=== PATIENT | male | born 1940 | race Caucasian/White ===

== ENCOUNTER → 2017-01-07 | Outpatient (CLI) | payer MEDICARE ==
[~2017-01-07] MED LIST: ALEVE220 MG PO; CLARITIN10 MG PO; LIPITOR TAB 1010 MG PO; NORVASC5 MG PO; PROTONIX40 MG PO; ZANTAC150 MG PO
== END ==
LOC: KOH-I 10:09
DX: M79.672 Pain in left foot (principal); M77.32 Calcaneal spur, left foot
CPT/HCPCS: 73630

== ENCOUNTER → 2021-09-26 | Outpatient (CLI) | payer MEDICARE ==
[~2021-09-26] MED LIST changes: +CEFPODOXIME PR200 MG PO; +K-DUR TAB 20 M20 MEQ PO; +KEFLEX500 MG PO; +MECLIZINE HCL25 MG PO; +TIROSINT25 MCG PO; +ZOFRAN ODT 4 MG4 MG PO
== END ==
LOC: HEART 5 08:45
DX: J44.9 Chronic obstructive pulmonary disease, unspecified (principal); J94.8 Other specified pleural conditions; R91.8 Other nonspecific abnormal finding of lung field; R94.2 Abnormal results of pulmonary function studies
CPT/HCPCS: 71046; 94060; 94729

== ENCOUNTER 2021-10-10 11:53 | Emergency (ER) | payer MEDICARE ==
[~2021-10-10 11:53] MED LIST changes: -MECLIZINE HCL25 MG PO; -ZOFRAN ODT 4 MG4 MG PO
[2021-10-10 13:44] LABS: HEMOGLOBIN 14.7 gm/dl (14.0-17.5); RED BLOOD COUNT 4.7 M/UL (4.20-5.50); WHITE BLOOD COUNT 7.2 K/UL (4.5-11.0)
[2021-10-10 14:10] LABS: BUN/CREATININE RATIO 17 (0-10)
[2021-10-10] MEDS ORDERED: ZOFRAN ODT 4 MG4 MG PO (19:02)
[2021-10-10] MEDS ORDERED: MECLIZINE HCL25 MG PO (19:02)
== END 2021-10-10 19:15 | disposition home or self-care (01) ==
LOC: ER1 11:53
PROVIDERS: Family Medicine
DX: R42 Dizziness and giddiness (principal); J44.9 Chronic obstructive pulmonary disease, unspecified; I10 Essential (primary) hypertension; Z20.822 Contact with and (suspected) exposure to COVID-19
CPT/HCPCS: 70450; 71045; 71046; 80053; 81001; 82550; 82553; 83605; 83735; 83874; 84439; 84443; 84484; 85025; 93005; 96374; 99284; J2405; U0002

== ENCOUNTER → 2022-06-29 | Outpatient (CLI) | payer MEDICARE ==
[~2022-06-29] MED LIST changes: +MECLIZINE HCL25 MG PO; +ZOFRAN ODT 4 MG4 MG PO
== END ==
LOC: KOH-I 08:56
DX: M25.561 Pain in right knee (principal); M25.562 Pain in left knee
CPT/HCPCS: 73562